=== PATIENT | male | born 1935 | race Caucasian/White ===

== ENCOUNTER 2019-06-26 20:05 | Emergency (ER) | payer MEDICARE, BC ==
[2019-06-26] MEDS ORDERED: Diphtheria,Pertussis(Acell),Tetanus Vaccine 0.5 ML Syringe IM ONE ×2 (20:56→21:26)
[2019-06-26] MEDS ORDERED: Bupivacaine 0.5% 30 ML SDV INFILT ONE (20:56)
[2019-06-26] MEDS ORDERED: Bupivacaine 0.5% 10 ML SDV ONE (20:58)
[2019-06-26] MEDS ORDERED: Bupivacaine 0.5% 10 ML SDV INJECT ONE (21:00)
[2019-06-26] MEDS ORDERED: Diphtheria,Pertussis(Acell),Tetanus Vaccine 0.5 ML Syringe ONE (21:13)
--- NOTE | 2019-06-26 22:02 | EDM.PDOC ---
ED HPI GENERAL MEDICAL PROBLEM - General Chief Complaint: Laceration Stated Complaint: INJURY TO RIGHT LEG Time Seen by Provider: 06/26/19 20:54 Source of Information: Reports: Patient History Limitations: Reports: No Limitations - History of Present Illness INITIAL COMMENTS - FREE TEXT/NARRATIVE: This patient is an 83-year-old male with no past medical history presenting with a laceration. Prior to arrival, the patient was trying to cut some fish when he excellently slipped, causing him to sustain a laceration to the medial aspect of the left thigh. Wound is hemostatic and he denies any other injuries. Unsure about tetanus immunization status. - Related Data Allergies Allergy/AdvReac Type Severity Reaction Status Date / Time No Known Allergies Allergy Verified 06/26/19 20:42 Home Meds: Home Meds . [Unable to Verify Home Med List] 06/26/19 [History] Past Medical History Cardiovascular History: Reports: Hypertension Oncologic (Cancer) History: Reports: Colon - Past Surgical History Other GI Surgeries/Procedures: colon cancer. Tumor removal Social & Family History - Family History Family Medical History: Noncontributory - Tobacco Use Smoking Status *Q: Never Smoker - Caffeine Use Caffeine Use: Reports: Coffee - Recreational Drug Use Recreational Drug Use: No ED ROS GENERAL - Review of Systems Review Of Systems: Comprehensive ROS is negative, except as noted in HPI. Skin: Reports: Wound ED EXAM, SKIN/RASH Exam: See Below Text/Narrative:: Vital signs reviewed. Nursing notes reviewed. Constitutional: Awake, alert, non-distressed Head: Normocephalic, atraumatic Eyes: EOMI, PERRL at 3 mm bilaterally, conjunctiva normal, no discharge, no scleral icterus Ears, Nose, Throat: External ears and ears normal, moist oral mucosa Cardiovascular: 2+ radial pulse, capillary refill less than 2 seconds Pulmonary: normal work of breathing, no accessory muscle use Abdomen/GI: Soft, nontender, nondistended, no guarding or rigidity, no masses Musculoskeletal: No deformities Integumentary: Appropriate color for ethnicity, warm, dry, no pallor or jaundice , no rash. 2 cm linear laceration to the medial aspect of the left thigh. Neurologic: Alert, answering questions appropriately, normal speech, no facial droop, moving all extremities well Psychiatric: Appropriate mood and affect, normal thought process ED SKIN PROCEDURES - Laceration/Wound Repair Left Anterior Medial Thigh Appearance: Superficial Anesthetic Type: Local Local Anesthesia - Bupivicaine (Marcaine): 0.5% Plain Local Anesthetic Volume: 3cc Skin Prep: Saline Exploration/Debridement/Repair: Wound Explored, In a Bloodless Field, No Foreign Material Found Closed with: Sutures Lac/Wound length In cm: 2 Suture Size: 3-0 # of Sutures: 6 Suture Type: Nylon Drain Placement: No Sterile Dressing Applied: Nurse Tetanus Status Addressed: Yes Complications: No Course - Vital Signs Text/Narrative:: On arrival patient is hemodynamically stable, well-appearing. Laceration noted the medial thigh. Tetanus immunization booster given. Wound was anesthetized and then copiously irrigated. Explored in a bloodless field with no evidence of contamination. Laceration repair performed as detailed of the procedure documentation. This was well-tolerated. Stable to discharge home with return in 1 week for suture removal. Strict ED return precautions were provided. All questions answered prior to discharge. Last Recorded V/S: Last Vital Signs Temp 35.6 C L 06/26/19 20:43 Pulse 69 06/26/19 20:43 Resp 17 06/26/19 20:43 BP 147/68 H 06/26/19 20:43 Pulse Ox 93 L 06/26/19 20:43 - Orders/Labs/Meds Orders: Active Orders 24 hr Category Date Time Status Procedure Tray at Bedside [RC] ASDIRECTED Care 06/26/19 20:56 Active Vaccines to be Administered [RC] PER UNIT ROUTINE Care 06/26/19 20:56 Active Meds: Medications Discontinued Medications Generic Name Dose Route Start Last Admin Trade Name Jerod PRN Reason Stop Dose Admin Bupivacaine HCl 10 ml 06/26/19 20:56 06/26/19 21:06 Marcaine 0.5% INFILT 06/26/19 20:57 Not Given ONETIME ONE Bupivacaine HCl 10 ml 06/26/19 21:00 06/26/19 21:05 Sensorcaine-Mpf 0.5% INJECT 06/26/19 21:01 10 ml ONETIME ONE Administration Bupivacaine HCl Confirm 06/26/19 20:58 06/26/19 21:05 Sensorcaine-Mpf 0.5% Administered 06/26/19 20:59 Not Given Dose 10 ml .ROUTE .STK-MED ONE Diphtheria/Tetanus/Acell Pertussis 0.5 ml 06/26/19 20:56 05/21/20 21:25 Boostrix IM 06/26/19 20:57 Not Given .ONCE ONE Diphtheria/Tetanus/Acell Pertussis Confirm 06/26/19 21:13 06/26/19 21:25 Adacel Administered 06/26/19 21:14 Not Given Dose 0.5 ml .ROUTE .STK-MED ONE Diphtheria/Tetanus/Acell Pertussis 0.5 ml 06/26/19 21:26 06/26/19 21:36 Adacel IM 06/26/19 21:27 0.5 ml .ONCE ONE Administration Departure - Departure Time of Disposition: 22:00 Disposition: Home, Self-Care 01 Condition: Good Clinical Impression: Laceration of thigh Qualifiers: Encounter type: initial encounter Laterality: left Qualified Code(s): S71.112A - Laceration without foreign body, left thigh, initial encounter - Discharge Information *PRESCRIPTION DRUG MONITORING PROGRAM REVIEWED*: Not Applicable *COPY OF PRESCRIPTION DRUG MONITORING REPORT IN PATIENT FRANCES: Not Applicable Instructions: Laceration Care, Adult, Sutured Wound Care Referrals: [facility] - Family Practice [Provider Group] - 1 Week (Return to the emergency department or go to the family medicine clinic in 1 week to have your sutures removed.) Additional Instructions: Your sutures will need to be removed in approximately 1 week. The following information is given to patients seen in the emergency department who are being discharged to home. This information is to outline your options for follow-up care. We provide all patients seen in our emergency department with a follow-up referral. The need for follow-up, as well as the timing and circumstances, are variable depending upon the specifics of your emergency department visit. If you don't have a primary care physician on staff, we will provide you with a referral. We always advise you to contact your personal physician following an emergency department visit to inform them of the circumstance of the visit and for follow-up with them and/or the need for any referrals to a consulting specialist. The emergency department will also refer you to a specialist when appropriate. This referral assures that you have the opportunity for follow-up care with a specialist. All of these measure are taken in an effort to provide you with optimal care, which includes your follow-up. Under all circumstances we always encourage you to contact your private physician who remains a resource for coordinating your care. When calling for follow-up care, please make the office aware that this follow-up is from your recent emergency room visit. If for any reason you are refused follow-up, please contact the [facility] Emergency Department at and asked to speak to the emergency department charge nurse. Sepsis Event Note - Evaluation Sepsis Screening Result: No Definite Risk - Focused Exam Vital Signs: Vital Signs Temp Pulse Resp BP Pulse Ox 06/26/19 20:43 35.6 C L 69 17 147/68 H 93 L Date Exam was Performed: 06/26/19 Time Exam was Performed: 21:58 - My Orders Last 24 Hours: My Active Orders 06/26/19 20:56 Procedure Tray at Bedside [RC] ASDIRECTED Vaccines to be Administered [RC] PER UNIT ROUTINE - Assessment/Plan Last 24 Hours: My Active Orders 06/26/19 20:56 Procedure Tray at Bedside [RC] ASDIRECTED Vaccines to be Administered [RC] PER UNIT ROUTINE
== END 2019-06-26 22:20 | disposition home or self-care (01) ==
LOC: MW.ED 20:05
DX: S71.112A Laceration without foreign body, left thigh, initial encounter (principal); I10 Essential (primary) hypertension; Z23 Encounter for immunization; W26.8XXA Contact with other sharp object(s), not elsewhere classified, initial encounter
CPT/HCPCS: 12001; 90471; 90715; 99282; J3490

== ENCOUNTER 2023-01-05 10:52 | Emergency (ER) | payer MEDICARE, BC | END 2023-01-05 11:50 | disposition home or self-care (01) | LOC: MW.ED 10:52 | DX: U07.1 COVID-19 (principal); I10 Essential (primary) hypertension; Z79.899 Other long term (current) drug therapy | CPT/HCPCS: 71045; 71045-26; 99283 ==

== ENCOUNTER 2024-10-21 18:56 | Emergency (ER) | payer MEDICARE, BC ==
[2024-10-21] MEDS ORDERED: Sodium Chloride 0.9% 10 ML Syringe FLUSH PRN (19:19)
[2024-10-21] MEDS ORDERED: Sodium Chloride 0.9% 2.5 ML Syringe FLUSH PRN (19:19)
[2024-10-21 19:28] LABS: BASOPHILS ABSOLUTE AUTO 0.03 K/uL (0.00-0.20); BASOPHILS PERCENT AUTO 0.4 % (0.0-1.0); EOSINOPHILS ABSOLUTE AUTO 0.28 K/uL (0.00-0.45); EOSINOPHILS PERCENT AUTO 3.6 % (0.0-6.0); IMMATURE GRAN ABSOLUTE AUTO 0.01 K/uL (0.00-0.05); IMMATURE GRAN PERCENT AUTO 0.1 % (0.0-0.4); LYMPHOCYTES ABSOLUTE AUTO 1.37 K/uL (1.00-4.80); LYMPHOCYTES PERCENT AUTO 17.5 % (24.0-44.0); MEAN PLATELET VOLUME 10.0 fL (9.4-12.4); MONOCYTES ABSOLUTE AUTO 0.70 K/uL (0.00-0.80); MONOCYTES PERCENT AUTO 8.9 % (0.0-8.0); NEUTROPHILS ABSOLUTE AUTO 5.44 K/uL (1.80-7.70); NEUTROPHILS PERCENT AUTO 69.5 % (41.0-71.0); NRBC ABSOLUTE 0.00 K/uL (0.00-0.02); NRBC PERCENT 0.0 /100WBC (0.0-0.2); PLATELET COUNT,PLT 268 K/uL (150-400); RED BLOOD CELL COUNT 4.34 M/uL (4.52-5.90); WHITE BLOOD CELL COUNT,WBC 7.83 K/uL (3.9-11.3)
[2024-10-21 19:36] LABS: D-DIMER QUANTITATIVE 0.55 mg/L FEU (0.00-0.50); INR 0.99 (0.86-1.11); PTT,PARTIAL THROMBOPLSTIN TIME 28.3 SEC (23.9-30.7)
[2024-10-21 19:38] LABS: BICARBONATE,VENOUS 31.0 mEq/L (22-29); PCO2 VENOUS 75.0 mmHG (41-51); PH,VENOUS 7.23 (7.32-7.43); PO2 VENOUS 35.0 mmHG (35-45)
[2024-10-21 19:39] LABS: BASE EXCESS VENOUS 1.5 (-2.0-3.0)
[2024-10-21 19:50] LABS: A/G RATIO 0.9 (0.9-1.6); ALANINE AMINOTRANSFERASE,ALT 12.0 IU/L (14-63); ASPARTATE AMNIOTRANSFERASE,AST 14.0 IU/L (15-37); BILIRUBIN TOTAL 0.1 mg/dL (0.2-1.0); BLOOD UREA NITROGEN,BUN 42.0 mg/dL (7.0-18.0); CARBON DIOXIDE,CO2 30.5 mmol/L (21.0-32.0); CHLORIDE,CL 100.0 mmol/L (98-107); CREATININE 1.6 mg/dL (0.8-1.3); EST CRCL DRUG DOSING (CG) 35.7 mL/min; ESTIMATED GFR 41.0 mL/min (>60); GLUCOSE RANDOM 127.0 mg/dL (74-106); POTASSIUM,K 4.8 mmol/L (3.5-5.1); PRO B-TYPE NATRIUR PEPT,BNPPRO 15689.0 pg/mL (0-450); PROTEIN TOTAL,TP 6.1 g/dL (6.4-8.2); SODIUM,NA 137.0 mmol/L (136-148)
[2024-10-21] MEDS: Furosemide 40 MG/4 ML VIAL IVPUSH ONE (20:41)
== END 2024-10-21 21:56 | disposition other institution (70) ==
LOC: MW.ED 18:56
DX: I11.0 Hypertensive heart disease with heart failure (principal); I50.9 Heart failure, unspecified; R09.02 Hypoxemia; Z79.82 Long term (current) use of aspirin; Z79.899 Other long term (current) drug therapy
CPT/HCPCS: 36415; 71045; 80053; 82803; 83735; 83880; 84484; 85025; 85379; 85610; 85730; 87426; 93005; 96374; 99285; A9270; J1938; 93010